=== PATIENT | female | born 1960 | race Caucasian/White ===

== ENCOUNTER → 2016-08-11 | Outpatient (CLI) | payer OTHER ==
[~2016-08-11] VITALS: Ht 160 cm; Wt 56.0 kg
[~2016-08-11] MED LIST: ASCORBIC ACID500 M3 PO; ASPIR-LOW81 MG PO; CALCIUM600 M1 PO; DAILY VITE1 EAC1 PO; Ecotrin PO; HUMALOG100 UNIT/1 SC; HUMULIN N100 UNITS/; HUMULIN N100 UNITS/ SC; HUMULIN R100 UNITS/; LEVO-T125 MCG PO; LEVOCETIRIZINE D5 MG; LEVOTHYROXINE175 MCG; Levothroid,Synthroid PO; NOVOLOG PE100 UNITS/ SC; PHENOBARBITAL 30 MG; PHENOBARBITAL100 MG PO; PHENobarbital PO; SERTRALINE HCL50 MG; SYNTHROID112 MCG PO; SYNTHROID125 MCG PO; XYZAL5 MG PO; ZOLOFT100 MG PO; Zoloft PO
[2016-08-11 09:07] VITALS: BP 124/66
== END | disposition home or self-care (01) ==
LOC: IVINF 08:55
DX: M81.0 Age-related osteoporosis without current pathological fracture (principal); Z88.8 Allergy status to other drugs, medicaments and biological substances
CPT/HCPCS: 96365; J3489